=== PATIENT | female | born 2000 | race Two or more races ===

== ENCOUNTER → 2024-12-09 | Outpatient (CLI) | payer BC, SELFPAY ==
--- NOTE | 2024-12-09 16:23 | XR_ITS ---
Examination: Abdomen 2 views TECHNIQUE: AP upright AP supine abdomen 2 views Date and time: December 09, 2024, 1700 hours. INDICATIONS: Constipation blood in the stool 3 years. FINDINGS: Thoraco lumbar levoscoliosis 18 degrees Nonobstructive bowel gas pattern. Moderate stool throughout the colon. No obstruction. No abnormal calcific densities IMPRESSION: Moderate stool throughout the colon
== END | disposition home or self-care (01) ==
PROVIDERS: PCP Internal Medicine; Referring Provider Nurse Practitioner Primary Care; Visit Provider Nurse Practitioner Primary Care
DX: K59.09 Other constipation (principal)
CPT/HCPCS: 74019

== ENCOUNTER 2025-02-09 17:06 | Emergency (ER) | payer BC, SELFPAY ==
[2025-02-09 17:29] VITALS: BP 120/85; PULSE 85; RESP 16; TEMP 36.7; O2SAT 99; BMI 21.4
--- NOTE | 2025-02-09 17:50 | PC.NURSE ---
PT DID NOT WANT TO WAIT FOR TREATMENT. SHE SAID SHE WOULD GO HOME AND TAKE CARE OF IT. AMA FOR SIGNED.
== END 2025-02-09 17:51 | disposition left against medical advice (07) ==
LOC: SERX 18:05
PROVIDERS: Emergency Provider Emergency Medicine
DX: Z53.21 Procedure and treatment not carried out due to patient leaving prior to being seen by health care provider (principal)
CPT/HCPCS: 99281